=== PATIENT | female | born 1955 ===

== ENCOUNTER 2020-10-29 15:49 | Outpatient (CLI) | payer OTHER | END 2020-10-29 15:53 | disposition home or self-care (01) | LOC: LAB 15:49 | PROVIDERS: ATTEND Urology | DX: N30.00 Acute cystitis without hematuria (principal); B96.4 Proteus (mirabilis) (morganii) as the cause of diseases classified elsewhere ==

== ENCOUNTER → 2020-11-08 13:53 | Outpatient (CLI) | payer OTHER | END | disposition home or self-care (01) | LOC: LAB 13:53 | PROVIDERS: ATTEND Urology | DX: N20.0 Calculus of kidney (principal); N30.00 Acute cystitis without hematuria ==

== ENCOUNTER 2020-11-28 11:50 | Day surgery (SDC) | payer OTHER ==
[~2020-11-28 11:50] MED LIST: ANASTROZOLE1 MG PO; ATAC PO; CANDESARTAN-HC1 EACH PO; LOPERAMIDE2 M1 PO; NERLYNX40 MG PO; NORVASC5 MG PO
== END 2020-11-28 17:20 | disposition home or self-care (01) ==
LOC: CIR.AMB 11:50
PROVIDERS: ATTEND Urology
DX: N20.0 Calculus of kidney (principal); Z20.822 Contact with and (suspected) exposure to COVID-19

== ENCOUNTER 2020-12-04 08:51 | Outpatient (CLI) | payer OTHER | END 2020-12-04 08:53 | disposition home or self-care (01) | LOC: RAD 08:51 | PROVIDERS: ATTEND Urology | DX: N20.0 Calculus of kidney (principal) ==